=== PATIENT | female | born 1940 | race Hispanic/Latino ===

== ENCOUNTER 2020-08-12 08:33 | Observation (INO) | payer MEDICARE, OTHER ==
[2020-08-08 12:20] LABS: BASOPHILS # (AUTO) 0.1 (0.0-0.1); BASOPHILS % 0.3 % (0.0-1.0); EOSINOPHILS # (AUTO) 0.2 (0.0-0.4); EOSINOPHILS % 1.1 % (0.0-6.0); HEMATOCRIT 31.9 % (34.2-44.1); HEMOGLOBIN 10.5 g/dL (12.0-16.0); LYMPHOCYTES % 12.6 % (18.0-39.1); MEAN CORPUSCULAR HEMOGLOBIN 27.6 pg (28-32); MEAN CORPUSCULAR HGB CONC 32.9 g/dL (31-35); MEAN CORPUSCULAR VOLUME 83.7 fL (81-99); MONOCYTES # (AUTO) 0.7 (0.2-0.8); MONOCYTES % 4.7 % (4.4-11.3); NEUTROPHILS # (AUTO) 12.6 (2.1-6.9); NEUTROPHILS % 80.7 % (38.7-80.0); PLATELET COUNT 417 x10e3/uL (140-360); RED BLOOD COUNT 3.81 x10e6/uL (3.6-5.1); RED CELL DISTRIBUTION WIDTH 12.5 % (11.7-14.4)
[2020-08-08 12:41] LABS: ANION GAP 14.8 mmol/L (8-16); CALCIUM 9.1 mg/dL (8.4-10.2); CREATININE, SERUM 0.95 mg/dL (0.57-1.11); POTASSIUM 4.8 mmol/L (3.5-5.1)
[~2020-08-12] VITALS: Ht 134.6 cm; Wt 68.9 kg
[~2020-08-12 08:33] MED LIST: AMLODIPINE BESYL5 MG PO; GLIPIZIDE ER5 MG PO; LIPITOR10 MG PO; LOSARTAN POTAS100 MG PO; METFORMIN HCL500 MG PO; METOPROLOL SUCC50 MG PO; VIT D PO
[2020-08-12] MEDS ORDERED: CEFAZOLIN SOD 1 GM/NS 50ML 50 ML IV ONE (09:26)
[2020-08-12 10:24] LABS: BASOPHILS # (AUTO) 0.1 (0.0-0.1); BASOPHILS % 0.6 % (0.0-1.0); EOSINOPHILS # (AUTO) 0.4 (0.0-0.4); EOSINOPHILS % 3.1 % (0.0-6.0); HEMATOCRIT 33.9 % (34.2-44.1); HEMOGLOBIN 11.1 g/dL (12.0-16.0); LYMPHOCYTES # (AUTO) 2.8 (1.0-3.2); LYMPHOCYTES % 23.4 % (18.0-39.1); MEAN CORPUSCULAR HEMOGLOBIN 27.7 pg (28-32); MEAN CORPUSCULAR HGB CONC 32.7 g/dL (31-35); MEAN CORPUSCULAR VOLUME 84.5 fL (81-99); MONOCYTES # (AUTO) 0.9 (0.2-0.8); MONOCYTES % 7.1 % (4.4-11.3); NEUTROPHILS # (AUTO) 7.8 (2.1-6.9); NEUTROPHILS % 65.1 % (38.7-80.0); PLATELET COUNT 427 x10e3/uL (140-360); RED BLOOD COUNT 4.01 x10e6/uL (3.6-5.1); RED CELL DISTRIBUTION WIDTH 12.4 % (11.7-14.4)
[2020-08-12] MEDS ORDERED: PROPOFOL IV EMULSION 10 MG/ML 20 ML VIAL ONE (12:22)
[2020-08-12] MEDS ORDERED: LIDOCAINE HCL 2% LOCAL INJ 5 ML SDV VIAL INJ ONE (12:22)
[2020-08-12] MEDS ORDERED: NEOSTIGMINE 1 MG/ML 10ML VIAL ONE (12:22)
[2020-08-12] MEDS ORDERED: SEVOFLURANE INHAL SOLN 250 ML PEN BTL ONE (12:22)
[2020-08-12] MEDS ORDERED: GLYCOPYRROLATE INJ 0.2 MG/ML VIAL ONE (12:22)
[2020-08-12] MEDS ORDERED: EPHEDRINE SULFATE INJ 50 MG/ML VIAL ONE (12:22)
[2020-08-12] MEDS ORDERED: ROCURONIUM BROMIDE 10 MG/ML 5ML VIAL IV ONE (12:22)
[2020-08-12] MEDS ORDERED: FENTANYL CITRATE/PF 100MCG/2 ML INJ ONE (13:03)
[2020-08-12] MEDS ORDERED: KETOROLAC TROMETHAMINE 30 MG/ML VIAL IV PRN (13:15)
[2020-08-12] MEDS ORDERED: SODIUM CHLORIDE 0.9% 1000ML 1,000 ML IV SCH (13:15)
[2020-08-12] MEDS ORDERED: DOCUSATE SODIUM 100 MG CAP PO PRN (13:15)
[2020-08-12] MEDS ORDERED: ACETAMINOPHEN 650 MG SUPP PR PRN (13:15)
[2020-08-12] MEDS ORDERED: ONDANSETRON HCL INJ 2MG/ML 2ML 2 MG/ML VIAL IV PRN (13:15)
[2020-08-12] MEDS ORDERED: HYDROCODONE/APAP 5MG-325MG TAB PO PRN (13:15)
[2020-08-12] MEDS ORDERED: DIPHENHYDRAMINE HCL INJ 50 MG/ML VIAL IV PRN (13:15)
[2020-08-12] MEDS ORDERED: HYDROCODONE/APAP 7.5MG-325MG 1 EA TAB PO PRN (13:15)
[2020-08-12] MEDS ORDERED: METOCLOPRAMIDE HCL 10 MG/2ML VIAL ONE (13:48)
[2020-08-12] MEDS ORDERED: PROMETHAZINE HCL (IM) 25 MG/ML VIAL IM ONE (14:01)
[2020-08-12 16:31] VITALS: BP 128/54
[2020-08-12] MEDS ORDERED: ACETAMINOPHEN 1000 MG/100 ML IV PRN (17:00)
[2020-08-12] MEDS: ASPIRIN 325 MG TAB PO SCH (18:37)
[2020-08-12] MEDS: CELECOXIB 100 MG CAP PO SCH (18:37)
[2020-08-12 20:00] VITALS: BP 139/54
[2020-08-12] MEDS: CEFAZOLIN SOD 1 GM/NS 50ML 50 ML IV SCH (20:26)
[2020-08-12 21:00] VITALS: BP 139/54
[2020-08-12] MEDS ORDERED: ZOLPIDEM TARTRATE 5 MG TAB PO PRN (21:00)
[2020-08-13] VITALS: BP 131/52
[2020-08-13] MEDS: CEFAZOLIN SOD 1 GM/NS 50ML 50 ML IV SCH (03:40)
[2020-08-13 04:00] VITALS: BP 134/53
[2020-08-13 05:19] LABS: HEMATOCRIT 25.6 % (34.2-44.1); HEMOGLOBIN 8.5 g/dL (12.0-16.0)
[2020-08-13 07:58] VITALS: BP 128/49
[2020-08-13] MEDS ORDERED: METFORMIN HCL 500 MG TAB PO SCH (08:00)
[2020-08-13 08:04] VITALS: BP 128/49
[2020-08-13] MEDS: ASPIRIN 325 MG TAB PO SCH (08:44)
[2020-08-13] MEDS: CELECOXIB 100 MG CAP PO SCH (08:44)
[2020-08-13] MEDS ORDERED: AMLODIPINE BESYLATE 5 MG TAB PO SCH (09:00)
[2020-08-13] MEDS ORDERED: METOPROLOL SUCCINATE 50 MG TAB XL PO SCH (09:00)
[2020-08-13] MEDS ORDERED: ATORVASTATIN 10 MG TAB PO SCH (21:00)
== END 2020-08-13 11:44 | disposition home or self-care (01) ==
LOC: OR 08:33 → PACU V 13:12 → MED/SURG 15:45
PROVIDERS: ADMIT Specialist; ATTEND Specialist
DX: S42.321A Displaced transverse fracture of shaft of humerus, right arm, initial encounter for closed fracture (principal); G62.9 Polyneuropathy, unspecified; G56.31 Lesion of radial nerve, right upper limb; E11.9 Type 2 diabetes mellitus without complications; I10 Essential (primary) hypertension; Z90.49 Acquired absence of other specified parts of digestive tract; E78.5 Hyperlipidemia, unspecified; Z79.84 Long term (current) use of oral hypoglycemic drugs; D64.9 Anemia, unspecified; Z01.810 Encounter for preprocedural cardiovascular examination; Z01.812 Encounter for preprocedural laboratory examination; Z01.818 Encounter for other preprocedural examination; Z11.59 Encounter for screening for other viral diseases
CPT/HCPCS: 24430; 36415 ×3; 71046; 80048; 82948 ×2; 85014; 85018; 85025 ×2; 86850; 86900; 86920; 93005; 97116; 97161; C1713 ×7; G0378 ×2; J0690 ×2; J2001; J2405; J2550; J2704; J2710; J2765; J3010; U0002; 76000